=== PATIENT | female | born 1955 | race Two or more races ===

== ENCOUNTER 2016-08-23 10:13 | Emergency (ER) | payer BC ==
--- NOTE | 2016-08-23 12:03 | UC ---
UC General HPI - HPI Summary HPI Summary: The patient comes in today for: 1. Vertigo, dyspnea, coughing, hot and cold: Onset: 2 days ago. Palliative/provocative: Head movement makes the dizziness worse, exertion makes her more short of breath. Resting still makes her feel better. Quality: Vertigo, dyspnea Region: [employer], pulmonary. Severity: No pain. Time: Comes and goes. Associated symptoms: Chest pain: Retrosternal only with her cough. Cough: Yesterday she brought up yellow material. Fevers: None measured. Rhinitis: Mucous clear. Wheezing: Yesterday. Inhaler use before: None. Heart disease: DM: (-), HTN: (-), Fm Hx: (-), cholesterol: (?), Smoker: (-), * - History of Current Complaint Chief Complaint: UCGeneralIllness Stated Complaint: CONGEST,COUGH, DIZZY Time Seen by Provider: 08/23/16 11:55 Hx Obtained From: Patient - Allergy/Home Medications Allergies/Adverse Reactions: Allergies Allergy/AdvReac Type Severity Reaction Status Date / Time Propoxyphene [From Darvon] Allergy See Comment Verified 03/05/16 09:40 steri strips Allergy See Comment Uncoded 03/05/16 09:40 Home Medications: Home Medications Ibuprofen TAB* [Advil TAB*] 1 tab 08/23/16 [History] [id number] [Nyquil Severe Cold/Flu 5-6.25-10-325 mg/15Ml] 08/23/16 [History] PMH/Surg Hx/FS Hx/Imm Hx Previously Healthy: No Endocrine History Of: Reports: Thyroid Disease - enlarged Denies: Diabetes, Hyperthyroidism, Hypothyroidism, Dyslipidemia Cardiovascular History Of: Denies: Cardiac Disorders, Hypertension, Pacemaker/ICD, Myocardial Infarction , Congestive Heart Failure, Atrial Fibrillation, Deep Vein Thrombosis, Bleeding Disorders Respiratory History Of: Denies: COPD, Asthma, Bronchitis, Pneumonia, Pulmonary Embolism GI/ History Of: Denies: Gastroesophageal Reflux, Ulcer, Gastrointestinal Bleed, Gall Bladder Disease, Kidney Stones, Diverticulitis, Renal Disease, Urosepsis Neurological History Of: Denies: TIA, CVA, Dementia, Seizures, Migraine Psychological History Of: Denies: Anxiety, Depression, Bipolar Disorder, Schizophrenia, Post Traumatic Stress Disorder Cancer History Of: Denies: Lung Cancer, Colorectal Cancer, Breast Cancer, Prostate Cancer, Cervical Cancer Other History Of: Negative For: Hepatitis B, Hepatitis C, Anticoagulant Therapy - Surgical History Surgical History: Yes Surgery Procedure, Year, and Place: 2 c-sections, tubal, choley,lt ankle orif, catoract X2. lap band - Family History Known Family History: Positive: Cardiac Disease, Hypertension, Diabetes Family History: No known cardio vascular issue reported in patients lineage - Social History Occupation: Employed Full-time Alcohol Use: Rare Substance Use Type: None Smoking Status (MU): Never Smoked Tobacco - Immunization History Most Recent Influenza Vaccination: 06/2016 Review of Systems Constitutional: Negative Skin: Negative Eyes: Negative ENT: Negative Respiratory: Shortness Of Breath, Cough Cardiovascular: Chest Pain Gastrointestinal: Negative Genitourinary: Negative All Other Systems Reviewed And Are Negative: Yes Physical Exam Triage Information Reviewed: Yes Appearance: Well-Appearing, No Pain Distress, Well-Nourished Vital Signs: Initial Vital Signs Temp 98.1 F 08/23/16 10:42 Pulse 61 08/23/16 10:42 Resp 18 08/23/16 10:42 BP 142/93 08/23/16 10:42 Pulse Ox 96 08/23/16 10:42 Vital Signs Reviewed: Yes Eyes: Positive: Conjunctiva Clear. Negative: Discharge ENT: Positive: Hearing grossly normal. Negative: Pharyngeal erythema, Nasal congestion, TM bulging, TM dull, TM red, Tonsillar swelling, Tonsillar exudate Dental: Negative: Gross Decay/Caries @, Dental Fracture @ Neck: Positive: Supple, Nontender, No Lymphadenopathy Respiratory: Positive: Chest non-tender, No respiratory distress, No accessory muscle use, Rhonchi, Wheezing Cardiovascular: Positive: RRR, No Murmur Abdomen Description: Positive: Nontender, No Organomegaly, Soft. Negative: Distended, Guarding Musculoskeletal: Positive: Strength Intact, ROM Intact Neurological: Positive: Alert, Muscle Tone Normal Psychological: Positive: Age Appropriate Behavior, Consolable Skin: Negative: rashes, breakdown Diagnostics - Laboratory Diagnostic Studies Completed/Ordered: EKG: Rate: 61. Rhythm: Sinus with atrial premature complexes. Ectopy: Atrial premature Complexes. Acute changes : None. CXR: negative. Re-Evaluation - Re-Evaluation First Eval Change: Improved - The patient states that she feels better with the Duoneb and is able to breath easier. Lungs are sounding more clear. Course/Dx - Differential Dx - Multi-Symptom Provider Diagnoses: Upper respiratory infection with bronchospoasm. Discharge - Discharge Plan Condition: Stable Disposition: HOME Patient Education Materials: Upper Respiratory Infection (ED), Bronchospasm (ED ), Vertigo (ED) Referrals: Arya Luevano MD [Primary Care Provider] - 1 Week (Please see your primary care provider in a week to see how well you are doing. If you get worse, please be seen sooner in the ER or through us.)
[2016-08-23] MEDS ORDERED: Albuterol/Ipratropium NEB.SOL* Albuterol 2.5 MG/Ipratropium 0.5 MG 3 ML INH ONE (12:14)
--- NOTE | 2016-08-23 12:52 | RAD ---
INDICATION: Cough. Dyspnea COMPARISON: None TECHNIQUE: PA and lateral dual-energy views were obtained. FINDINGS: Bones/Soft Tissues: There are no acute bony findings. There is osteopenia with kyphosis Cardiomediastinal: The cardiomediastinal silhouette is normal. Lungs: There are no infiltrates. Pleura: There are no pleural effusions. Other: None IMPRESSION: NO ACTIVE DISEASE.
[2016-08-23 13:11] VITALS: BP 152/91
== END 2016-08-23 13:35 | disposition home or self-care (01) ==
LOC: UCEAST 10:13
DX: J06.9 Acute upper respiratory infection, unspecified (principal); J98.01 Acute bronchospasm
CPT/HCPCS: 71020; 93005; 99212; A9270-GY; G0463

== ENCOUNTER 2017-06-25 10:46 | Emergency (ER) | payer BC ==
[2017-06-25 12:04] VITALS: BP 138/94
--- NOTE | 2017-06-25 12:49 | UC ---
Ear Complaint HPI - HPI Summary HPI Summary: Pt presents with left ear pain, sore throat, and mild sinus congestion that started 2 days ago. She is here because her boss told her to get "checked out" because there are important events upcoming and they dont want her to be sick. She has been taking OTC cold and flu medication with mild relief, but her symptoms always return. Denies fever, chills, SOB, chest pain, abdominal pain, n /v/d/c. - History of Current Complaint Chief Complaint: UCGeneralIllness Stated Complaint: EAR PAIN RESP ISSUE Time Seen by Provider: 06/25/17 12:47 Hx Obtained From: Patient Severity Initially: Moderate Severity Currently: Moderate Pain Intensity: 5 Pain Scale Used: 0-10 Numeric - Allergies/Home Medications Allergies/Adverse Reactions: Allergies Allergy/AdvReac Type Severity Reaction Status Date / Time propoxyphene [From Darvon] Allergy jittery Verified 06/25/17 12:04 steri strips Allergy Mild See Comment Uncoded 06/25/17 12:05 Home Medications: Home Medications D-Methorphan/PE/Acetaminophen [Daytime Cold Multi-Symp Gelcap] 1 tab PO BID PRN 06/25/17 [History Confirmed 06/25/17] Magnesium Oxide [Magnesium] 1 tab PO DAILY 06/25/17 [History Confirmed 06/25/17] Multivitamin [Multiple Vitamins] 1 tab PO DAILY 06/25/17 [History Confirmed 11/04] PMH/Surg Hx/FS Hx/Imm Hx Previously Healthy: Yes Other History Of: Negative For: Hepatitis B, Hepatitis C, Anticoagulant Therapy - Surgical History Surgical History: Yes Surgery Procedure, Year, and Place: 2 c-sections, tubal, choley,lt ankle orif, catoract X2. lap band - Family History Known Family History: Positive: None, Cardiac Disease, Hypertension, Diabetes Family History: No known cardio vascular issue reported in patients lineage - Social History Occupation: Employed Full-time Lives: With Family Alcohol Use: Rare Substance Use Type: None Smoking Status (MU): Never Smoked Tobacco - Immunization History Most Recent Influenza Vaccination: 06/2016 Most Recent Tetanus Shot: within 10 years Review of Systems Constitutional: Negative Skin: Negative Eyes: Negative ENT: Sore Throat, Ear Ache, Nasal Discharge, Sinus Congestion, Sinus Pain/ Tenderness Respiratory: Negative Cardiovascular: Negative Gastrointestinal: Negative Musculoskeletal: Negative Neurological: Negative Psychological: Negative All Other Systems Reviewed And Are Negative: Yes Physical Exam Triage Information Reviewed: Yes Appearance: Well-Appearing, No Pain Distress, Well-Nourished Vital Signs: Initial Vital Signs Temp 97.8 F 06/25/17 12:00 Pulse 54 06/25/17 12:00 Resp 20 06/25/17 12:00 BP 138/94 06/25/17 12:00 Pulse Ox 100 06/25/17 12:00 Vital Signs Reviewed: Yes Eyes: Positive: Conjunctiva Clear. Negative: Conjunctiva Inflamed, Discharge ENT: Positive: Hearing grossly normal, Pharynx normal, TMs normal, Uvula midline. Negative: Pharyngeal erythema, Nasal congestion, Nasal drainage, TM bulging, TM dull, TM red, Tonsillar swelling, Tonsillar exudate, Hoarse voice, Sinus tenderness Neck: Positive: Supple, Nontender, No Lymphadenopathy Respiratory: Positive: Chest non-tender, Lungs clear, Normal breath sounds, No respiratory distress, No accessory muscle use Cardiovascular: Positive: RRR, No Murmur, Pulses Normal Neurological: Positive: Alert Psychological: Positive: Age Appropriate Behavior Skin: Negative: rashes Ear Complaint Course/Dx - Course Course Of Treatment: Suspect viral illness - advised rest and fluids. Continue with OTC medications and tylenol as needed. - Differential Dx/Diagnosis Provider Diagnoses: Viral sinusitis. Viral pharyngitis Discharge - Discharge Plan Condition: Stable Disposition: HOME Patient Education Materials: Viral Syndrome (ED) Referrals: Arya Luevano MD [Primary Care Provider] - Additional Instructions: If you develop a fever, shortness of breath, chest pain, new or worsening symptoms - please call your PCP or go to the ED. Your blood pressure was high at todays visit. Please see your primary provider within 4 weeks for recheck and re-evaluation.
== END 2017-06-25 13:20 | disposition home or self-care (01) ==
LOC: UCEAST 10:46
DX: J32.8 Other chronic sinusitis (principal); J02.9 Acute pharyngitis, unspecified; Z90.49 Acquired absence of other specified parts of digestive tract; Z98.84 Bariatric surgery status; Z88.5 Allergy status to narcotic agent; Z91.048 Other nonmedicinal substance allergy status
CPT/HCPCS: 99211; G0463

== ENCOUNTER 2018-05-29 09:50 | Observation (INO) | payer BC, MEDICARE ==
--- NOTE | 2018-05-29 10:30 | ED ---
Neurological HPI - HPI Summary HPI Summary: Time seen by provider: 10:27. The patient is a 62 y/o F presenting to [facility] with a chief complaint of sudden onset stroke-like symptoms this morning at 0900. She was walking on her way to work as normal when she began to feel a spasming, jerking feeling her left hand. She then noticed she dropped her lunch bag 5 times, which she was carrying in her left hand because she is left-hand dominant. When she arrived to work, a co-worker noticed she was slurring her speech, which lasted for about a minute. She additionally c/o a slight headache behind her right eye, although she is not usually prone to headaches or migraines. She denies change in gait, SOB, CP, or any associated pain. While her symptoms have since resolved , she notes that she has never had this before. She does not take daily medication except for Benadryl when she has difficulty sleeping. She has hx of thyroid disease but denies seizure and cardiac hx. FHx of cardiac disease. Rare EtOH and nonsmoker or substance user. - History of Current Complaint Chief Complaint: EDNeurologicalDeficit Stated Complaint: SLURRED SPEECH Time Seen by Provider: 05/29/18 10:18 Hx Obtained From: Patient Onset/Duration: Sudden Onset, Started hours ago, Resolved Timing: Sudden Onset Onset Severity: Moderate Current Severity: None Neurological Deficit Location: LUE Headache Location: Temporal (Right) - behind right eye Pain Intensity: 0 Pain Scale Used: 0-10 Numeric Character: Motor Weakness - spasming of left hand and continuous dropping of lunch bag, Impaired Speech - slurred Aggravating: Nothing Alleviating: Nothing Associated Signs and Symptoms: Positive: Impaired Speech. Negative: Unsteady Gait, Seizure, Pain, Chest Pain, Shortness of Breath - Allergy/Home Medications Allergies/Adverse Reactions: Allergies Allergy/AdvReac Type Severity Reaction Status Date / Time propoxyphene [From Darvon] Allergy jittery Verified 05/29/18 10:11 steri strips Allergy Mild See Comment Uncoded 05/29/18 10:11 Home Medications: Home Medications diphenhydrAMINE HCl [Benadryl LIQUID 12.5 MG/5 ML] 12.5 mg PO DAILY 05/29/18 [ History Confirmed 05/29/18] PMH/Surg Hx/FS Hx/Imm Hx Endocrine/Hematology History: Reports: Hx Thyroid Disease - enlarged Denies: Hx Anticoagulant Therapy, Hx Diabetes Cardiovascular History: Denies: Hx Congestive Heart Failure, Hx Deep Vein Thrombosis, Hx Hypertension , Hx Myocardial Infarction, Hx Pacemaker/ICD Respiratory History: Denies: Hx Asthma, Hx Chronic Obstructive Pulmonary Disease (COPD), Hx Lung Cancer, Hx Pneumonia, Hx Pulmonary Embolism GI History: Denies: Hx Gall Bladder Disease, Hx Gastrointestinal Bleed, Hx Ulcer, Hx Urosepsis History: Denies: Hx Kidney Stones, Hx Renal Disease Neurological History: Denies: Hx Dementia, Hx Migraine, Hx Seizures, Hx Transient Ischemic Attacks (TIA) Psychiatric History: Denies: Hx Anxiety, Hx Depression, Hx Schizophrenia, Hx Bipolar Disorder - Surgical History Surgery Procedure, Year, and Place: 2 c-sections, tubal, choley,lt ankle orif, catoract X2. lap band Infectious Disease History: No Infectious Disease History: Denies: Hx Hepatitis, Hx Human Immunodeficiency Virus (HIV), Traveled Outside the [place] in Last 30 Days - Family History Known Family History: Positive: Cardiac Disease, Hypertension, Diabetes Family History: No known cardio vascular issue reported in patients lineage - Social History Alcohol Use: Rare Hx Substance Use: No Substance Use Type: Reports: None Hx Tobacco Use: No Smoking Status (MU): Never Smoked Tobacco Review of Systems Negative: Fever, Chills Negative: Erythema Negative: Sore Throat Negative: Chest Pain Negative: Shortness Of Breath, Cough Negative: Abdominal Pain, Vomiting, Nausea Negative: dysuria, hematuria Negative: Myalgia, Edema Negative: Rash Neurological: Other - POSITIVE: sensation of muscle spasming in left hand; NEGATIVE: dizziness, change in gait Positive: Headache - pain behind right eye, Slurred Speech - lasting for a minute All Other Systems Reviewed And Are Negative: Yes Physical Exam - Summary Physical Exam Summary: Constitutional: Well-developed, Well-nourished, Alert. (-) Distressed Skin: Warm, Dry HENT: Normocephalic; Atraumatic Eyes: Conjunctiva normal Neck: Musculoskeletal ROM normal neck. (-) JVD, (-) Stridor, (-) Tracheal deviation Cardio: Rhythm regular, rate normal, Heart sounds normal; Intact distal pulses; The pedal pulses are 2+ and symmetric. Radial pulses are 2+ and symmetric. (-) Murmur Pulmonary/Chest wall: Effort normal. (-) Respiratory distress, (-) Wheezes, (-) Rales Abd: Soft, (-) epigastric tenderness, (-) Distension, (-) Guarding, (-) Rebound Musculoskeletal: (-) Edema Lymph: (-) Cervical adenopathy Neuro: Alert, Oriented x3, GCS: 15, NIH: 0 Psych: Mood and affect Normal Triage Information Reviewed: Yes Vital Signs On Initial Exam: Initial Vitals Temp Pulse Resp BP Pulse Ox 97.2 F 64 17 195/109 98 05/29/18 09:51 05/29/18 09:51 05/29/18 09:51 05/29/18 09:51 05/29/18 09:51 Vital Signs Reviewed: Yes - Giana Coma Scale Best Eye Response: 4 - Spontaneous Best Motor Response: 6 - Obeys Commands Best Verbal Response: 5 - Oriented Coma Scale Total: 15 Diagnostics - Vital Signs Vital Signs Temp Pulse Resp BP Pulse Ox 05/29/18 09:51 97.2 F 64 17 195/109 98 - Laboratory Result Diagrams: 05/29/18 10:37 05/29/18 10:37 Lab Statement: Any lab studies that have been ordered have been reviewed, and results considered in the medical decision making process. - CT Brain CT CT Interpretation Completed By: Radiologist Summary of CT Findings: Negative unenhanced head CT. ED physician has reviewed this report. - EKG 1042 Cardiac Rate: Bradycardia - 55 BPM EKG Rhythm: Sinus Bradycardia EKG Comparison: No Significant Change - Similar to 08/23/16. Summary of EKG Findings: No STEMI. NIH Scale - NIH Scale Level of Consciousness: Alert/Keenly Responsive Ask Patient the Month and His/Her Age: Both Correct Ask Pt to Open/Close Eyes and Windows Desktop Support/Release Non-Paretic Hand: Both Correctly Best Gaze (Only Horizontal Eye Movement): Normal Visual Field Testing: No Visual Loss Facial Paresis-Pt to Smile & Close Eyes or Grimace Symmetry: Normal/Symmetrical Motor Function - Right Arm: No Drift-Holds 10 Seconds Motor Function - Left Arm: No Drift-Holds 10 Seconds Motor Function - Right Leg: No Drift-Holds 10 Seconds Motor Function - Left Leg: No Drift-Holds 10 Seconds Limb Ataxia-Must be out of Proportion to Weakness Present: Absent Sensory (Use Pinprick to Test Arms/Legs/Trunk/Face): Normal Best Language (Describe Picture, Name Items): No Aphasia Dysarthria (Read Several Words): Normal Extinction and Inattention: No Abnormality Total Score: 0 Re-Evaluation - Re-Evaluation First Eval Re-Evaluation Time: 11:00 Change: Unchanged Comment: I spoke with the patient concerning admission. Course/Dx - Course Course Of Treatment: Time seen by provider: 10:27. The patient is a 62 y/o F presenting to [facility] with a chief complaint of sudden onset stroke-like symptoms including spasming of the left hand, continuous dropping of her lunch bag, and slurring of speech this morning at 0900. She additionally c/o a slight headache behind her right eye, and denies change in gait. Never experienced this before. No seizure or cardiac hx. FHx of cardiac disease. Upon physical exam, the patient exhibits no acute abnormalities. Bloodwork obtained without significant abnormalities. EKG reveals sinus bradycardia. Brain CT is negative. I consulted with Dr. Kaur at 1100, and he will see the patient in the ED. I also spoke with Dr. Al, who accepts the patient for admission at 1135. The patient is diagnosed with TIA. She agrees with and understands the need for admission at this time. - Diagnoses Provider Diagnoses: TIA (transient ischemic attack) - Physician Notifications Discussed Care Of Patient With: Slim Kaur - neurology Time Discussed With Above Provider: 11:00 Instructed by Provider To: Other - I consulted with Dr. Kaur, who will see the patient in the ED. I also spoke with Dr. Al, who accepts the patient for admission at 1135. Discharge - Sign-Out/Discharge Documenting (check all that apply): Patient Departure - Patient will be admitted to [facility] [place] for further care by Dr. Al. - Discharge Plan Condition: Stable Disposition: ADMITTED TO [facility] - Billing Disposition and Condition Condition: STABLE Disposition: Admitted to [facility] - Attestation Statements Document Initiated by Scribe: Yes Documenting Scribe: Kerrie Falcon Provider For Whom Scribe is Documenting (Include Credential): Dr. Bubab Joseph MD Scribe Attestation: Kerrie Moran, scribed for Dr. Bubba Joseph MD on 05/29/18 at 2053. Scribe Documentation Reviewed: Yes Provider Attestation: The documentation as recorded by the scribe, Kerrie Falcon accurately reflects the service I personally performed and the decisions made by me, Dr. Bubba Joseph MD Status of Cinthya Document: Viewed
[2018-05-29 10:44] LABS: Hematocrit 44 % (35-47); Hemoglobin 14.4 g/dl (12.0-16.0); Mean Corpuscular HGB Conc 33 g/dl (31-36); Mean Corpuscular Hemoglobin 29 pg (27-31); Mean Corpuscular Volume 89 fL (80-97); Mean Platelet Volume 8.3 fL (7.4-10.4); Platelet Count 250 10^3/ul (150-450); Red Blood Count 4.92 10^6/ul (4.00-5.40); Red Cell Distribution Width 14 % (10.5-15); White Blood Count 6.9 10^3/ul (3.5-10.8)
[2018-05-29 10:54] LABS: Activated Partial Thrombo Time 29.3 seconds (26.0-36.3); INR 0.91 (0.77-1.02)
[2018-05-29 11:07] LABS: Albumin 3.7 g/dL (3.2-5.2); Albumin/Globulin Ratio 1.1 (1-3); BUN/Creatinine Ratio 29.3 (8-20); Calcium 9.7 mg/dL (8.6-10.3); EGFR Non-African American 77.8 (>60); Globulin 3.4 g/dL (2-4); Potassium 4.2 mmol/L (3.5-5.0); Total Bilirubin 0.5 mg/dL (0.2-1.0); Total Protein 7.1 g/dL (6.4-8.9)
[2018-05-29] MEDS ORDERED: Acetaminophen TAB* 325 MG PO PRN (13:58)
[2018-05-29] MEDS ORDERED: Enoxaparin(*) 40 MG/0.4 ML SYR SUBCUT SCH (14:00)
[2018-05-29] MEDS ORDERED: Melatonin 3 MG TAB PO PRN (14:04)
[2018-05-29] MEDS ORDERED: Aspirin 81 mg CHEW TAB* 81 MG TAB.CHEW PO ONE (14:23)
[2018-05-29 15:15] LABS: TSH (Thyroid Stimulating Horm) 0.52 mcIU/mL (0.34-5.60)
--- NOTE | 2018-05-29 15:37 | HP ---
CC: Dr. Luevano * HISTORY AND PHYSICAL: DATE OF ADMISSION: 05/29/18 PROVIDER: Shima Griffin NP. ATTENDING PHYSICIAN WHILE IN THE HOSPITAL: Dr. Ghulam Al * (dictated by Shima Griffin NP). CHIEF COMPLAINT: 1. Slurred speech. 2. Left hand weakness. HISTORY OF PRESENT ILLNESS: Ms. Pelletier is a 62-year-old female with a past medical history significant for thyroid goiter, who presented to the emergency room with the complaint of slurred speech and dropping things from her left hand. The patient reports that she picked up her lunch bag and was walking to work and kept dropping the lunch bag out of her left hand. She does report she was able to meat pickler the lunch bag each time with her left hand, but then would walk a few steps and the bag would drop out of her hand. She reports that she felt like her left third and fourth fingers were twitching. The patient reports that she proceeded and walked to work. When she got to work, she went to talk to a co-worker and her speech was slurred. The co-worker asked her if she was okay and due to her slurred speech and dropping things with her left hand, she was brought to the emergency room by another co-worker. She said this episode lasted approximately 15 minutes. She said that it started at approximately 8:55 and was resolved by approximately 9:10. The patient denies any residual deficits. She denied any dizziness, loss of consciousness, change in vision. She does report that behind her right eye, she did have some aching. While in the emergency room, the patient had routine lab work drawn, which was within normal limits. She had a CT of the brain, which was negative and did not show any intracranial hemorrhage. Due to her symptoms, we were asked to see and evaluate her to rule out TIA. PAST MEDICAL HISTORY: Goiter. PAST SURGICAL HISTORY: 1. Lap-Band. 2. . 3. Tubal ligation. 4. Cholecystectomy. 5. ORIF of the left ankle. 6. D and C. 7. Cataract surgery. HOME MEDICATIONS: Benadryl at bedtime. ALLERGIES: She is allergic to DARVON. FAMILY HISTORY: Mother with a history of OK in her 70s. Father with congestive heart failure, at age 61. Father with a history of diabetes, brother with history of unknown cancer, aunt with breast cancer. SOCIAL HISTORY: Denies any tobacco. Does report rare alcohol use. Denies any illicit drug use. 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 She is . Surrogate decision maker in the event she is unable to make her own decisions is her who she lives with. She is a full code. REVIEW OF SYSTEMS: She denies any fever, any loss of appetite, chest pain, edema. She does report a chronic cough, which she associates with acid reflux. She denies any hemoptysis or shortness of breath. No nausea, vomiting, diarrhea , abdominal pain, gross hematuria, or dysuria. She does report weakness to her left hand that lasted approximately 15 minutes where she kept dropping objects. She did complain of some aching behind the right eye, which has resolved. Denies any dysphagia. Denies any arthralgias, myalgias, rashes, lesions. No psychosis or anxiety. PHYSICAL EXAMINATION GENERAL: Ms. Pelletier is a 62-year-old female. She appears well, sitting on a stretcher in the emergency room. She does not appear to be in any acute distress. She is alert and oriented x3. HEENT: Head is atraumatic, normocephalic. Eyes: EOMs are intact. Sclerae anicteric and not pale. Oral mucosa appeared to be moist. NECK: Supple. She does have thyroid enlargement on the left. LUNGS: Clear to auscultation bilaterally. No wheezes, rales, or rhonchi. CARDIAC: S1, S2. Regular rate and rhythm. She is bradycardic on the monitor. No murmurs, rubs, or gallops. ABDOMEN: Soft and nontender. Bowel sounds are present x4. EXTREMITIES: Pedal pulses are +2 bilaterally. She is able to move all 4 extremities with 5/5 strength. NEUROLOGIC: She is awake, alert, oriented x3. Speech is clear. Smile is intact. Tongue is midline. Cranial nerves II through XII are intact. She has no pronator drift, no leg weakness is noted. Hand waste machine offbearer are equal. Speech is clear and articulate. Fafw-kt-rspb is intact. Dqgcyj-sq-fatt is intact. SKIN: Intact. DIAGNOSTIC STUDIES/LAB DATA: WBCs are 6.9, RBCs 4.92, hemoglobin 14.4, hematocrit 44, platelet count 250. INR was 0.91, aPTT was 29.3. Sodium 137, potassium 4.2, chloride 102, carbon dioxide was 29, anion gap was 6, BUN was 22 , creatinine 0.75, glucose was 99, calcium 9.7. AST was 17, ALT was 13, alkaline phosphatase 65. CT of the brain: Negative unenhanced CT of the brain. She had an electrocardiogram, which showed sinus bradycardia. ASSESSMENT AND PLAN: Ms. Pelletier is a 62-year-old female with no significant past medical history other than a goiter, who presented to the emergency room with a complaint of slurred speech and left hand weakness lasting approximately 15 minutes this a.m. At this time, she will be admitted to rule out TIA. 1. Slurred speech: I suspect this could be related to a TIA. The patient did have symptoms of left hand weakness and dropping her lunch bag several times out of her left hand, lasting approximately 15 minutes and then with total resolution of her symptoms. Given this, the patient will be admitted. She will be monitored on telemetry. We will get neuro checks overnight. She will have an MRI of the brain. She will have transthoracic echocardiogram with bubble study and bilateral carotid Dopplers. She will be monitored on telemetry overnight. She will have a swallow evaluation and she can be placed on heart-healthy, caffeine-okay diet. We will also get a lipid profile in the a.m. and I will place her on aspirin 81 mg p.o. daily. After passing her dysphagia screen, she can be started on a heart-healthy diet. 2. DVT prophylaxis: We will place her on Lovenox subcu daily. 3. Code status: She is a full code. TIME SPENT: Time spent on this admission was 60 minutes, greater than half of that time was spent [id number] with the patient obtaining my history and physical and the other half of the time reviewing my plan of care and implementing my plan of care. SHIMA GRIFFIN, AURE [id number]/CPS #: [id number] MTDD
--- NOTE | 2018-05-29 16:15 | CONS ---
CONSULTATION REPORT: ADDENDUM: ASSESSMENT AND PLAN: Ms. Hawa Pelletier is a 62-year-old fairly healthy female who presents with a transient episode of slurred speech and left hand weakness. There is a concern for transient ischemic attack in the right middle coronary artery vascular territory. Her ABCD score is 1 for slurred speech. Therefore, her risk of an actual stroke within the next 24 hours or even the 90 days is low. However, we will admit to the hospitalist service for further workup. Please obtain an MRI of the brain without contrast to evaluate for any intracranial mass lesions or an acute asymptomatic ischemic infarction. MRA of the head to evaluate for intracranial stenosis and a carotid ultrasound to evaluate for carotid disease. Please obtain a 2D transthoracic echo with bubble study to evaluate for patent foramen ovale or any cardioembolic phenomenon. If positive, we will need to scan her lower extremities with a venous Doppler. Start aspirin 81 mg daily. Hold off on statin therapy until her lipid panel comes back. Please order TSH given her enlarged thyroid gland which she is aware of and she had informed me that extensive workup has been done in the past for this and it is benign. Please obtain a vitamin B12 level. Neuro checks every 4 hours. No need for PT/OT/JAVA DEVELOPMENT MANAGER since the patient is asymptomatic. Keep her blood pressure within normal range. Bedside swallow evaluation. Do not place a urinary catheter unless there is evidence of urinary retention. DVT prophylaxis with enoxaparin. There is no indication for anticoagulation therapy. The patient is not a candidate for IV tPA or mechanical thrombectomy. TIME SPENT: A total of 70 minutes and greater than 50% was spent directly reviewing the medical chart, obtaining history, examining the patient, education and counseling, and discussing the treatment plan as mentioned above. [id number]/[facility] #: [id number] [facility] CENTERMyrna
--- NOTE | 2018-05-29 16:24 | CONS ---
CONTINUATION ADDENDUM NOW INCLUDED IN THIS REPORT CONSULTATION REPORT: DATE OF CONSULT: 05/29/18 CONSULTING PROVIDER: Dr. Joseph. REASON FOR CONSULT: Concern for TIA. CHIEF COMPLAINT: Sudden-onset slurred speech and left hand weakness that has resolved. HISTORY OF PRESENT ILLNESS: Mrs. Hawa Pelletier is a 62-year-old female with a past medical history of enlarged thyroid gland, who presented to [facility] for an evaluation of possible TIA. The patient woke up in normal state of health. At approximately 9 a.m., she got out of her car and started walking to her office. 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 At 9:05, she developed symptoms of left hand weakness. She dropped her bag 5 times from where she parked her car and where her office is located. At 9:15, one of the attorneys asked her a question and she responded with significant slurring of speech. There was some associated headache and dizziness that is benign. She felt slight vertigo yesterday. The slurred speech apparently went away after a few minutes. She came to the ER completely asymptomatic. She is aspirin naive. She had a CT head without contrast that showed no acute intracranial abnormality. NIH Stroke Scale of 0 at this time. The patient has never had any similar symptoms in the past. PAST MEDICAL AND SURGICAL HISTORY: Two C-sections, tubal ligation, gallbladder surgery, bilateral cataract surgery, left ankle ORIF. MEDICATIONS: 1. Multivitamin. 2. Diphenhydramine/Benadryl 12.5 mg p.o. daily. ALLERGIES: PROPOXYPHENE, STERI-STRIPS. FAMILY HISTORY: She has family history of diabetes and coronary artery disease. No family history of stroke or seizures. 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 She denied tobacco use. She does drink alcohol, but rarely. PHYSICAL EXAM: Vitals: Temperature 97.2, pulse rate of 57, respiratory rate of 24, oxygen saturation of 95% on room air, blood pressure 139/78. General: Well- nourished, well-developed female, in no acute distress. Alert, cooperative. Head: Normocephalic, atraumatic. Eyes: Conjunctivae/corneas are clear. Neck is supple and symmetrical, but there is thyroid gland enlargement, left greater than right. No carotid bruit. Clear to auscultation bilaterally, non-labored breathing. Regular rate and rhythm, with normal S1, S2. Normal range of motion, with no cyanosis. No skin lesions or lacerations. Psychiatric : Affect is broad and normal mood. Neurological Examination: Mental Status: Awake, alert, and oriented to person, place, time, and general circumstance. Speech and language including expression, naming, repetition, and comprehension were assessed and found to be normal. Cranial Nerves: Normal confrontation testing bilaterally. Pupils are mid range and reactive to light. Normal consensual response. Sensation is intact in the forehead, cheeks, and jaw region bilaterally. No facial droop. She is able to hear throughout the history process. Symmetrical palatal elevation. Normal strength against resistance. Tongue is symmetrical and midline, without any atrophy or fasciculation. Motor Examination: No abnormal movements or pronator drift. Normal bulk and tone throughout. No fasciculation. 5/5 strength in the upper and lower extremities bilaterally. Reflexes right/left, brachioradialis 2/2, biceps 2/2, triceps 2/2, patella 2/2, ankle trace/trace. Sensation is intact to light touch throughout. Vibrator sensation is 14 seconds on the right and 6 seconds on the left great toe. Normal proprioception bilaterally. Coordination : Normal uppotx-cj-heup and rapid alternating movement. Gait and station normal and no ataxia. DIAGNOSTIC STUDIES/LAB DATA: WBC 6.9, hemoglobin 14.4, hematocrit 44, platelets function 250. Sodium 137, potassium 4.2, chloride 102, BUN 22, creatinine 0.75. CONTINUATION ADDENDUM: ASSESSMENT AND PLAN: Ms. Hawa Pelletier is a 62-year-old, fairly-healthy female who presents with a transient episode of slurred speech and left hand weakness. There is a low suspicion for transient ischemic attack in the right middle coronary artery vascular territory. Her ABCD score is 1 for slurred speech. Therefore, her risk of an actual stroke within the next 24 hours or even the 90 days is low. However, we will admit to the hospitalist service for further workup. Other differential diagnosis include seizures (less likely) or complicated migraine headaches. Recommendations: Please obtain an MRI of the brain without contrast to evaluate for any intracranial mass lesions or an acute asymptomatic ischemic infarction. MRA of the head to evaluate for intracranial stenosis and a carotid ultrasound to evaluate for carotid disease. Please obtain a 2D transthoracic echo with bubble study to evaluate for patent foramen ovale or any cardioembolic phenomenon. If positive, we will need to scan her lower extremities with a venous Doppler. Start aspirin 81 mg daily. Hold off on statin therapy until her lipid panel comes back. Please order TSH given her enlarged thyroid gland which she is aware of and she had informed me that extensive workup has been done in the past for this and it is benign. Please obtain a vitamin B12 level. Neuro checks every 4 hours. No need for PT/OT/LIFE SKILLS COORDINATOR VOLUNTEER since the patient is asymptomatic. Keep her blood pressure within normal range. Bedside swallow evaluation. Do not place a urinary catheter unless there is evidence of urinary retention. DVT prophylaxis with enoxaparin. There is no indication for anticoagulation therapy. The patient is not a candidate for IV tPA or mechanical thrombectomy. TIME SPENT: A total of 70 minutes and greater than 50% was spent directly reviewing the medical chart, obtaining history, examining the patient, education and counseling, and discussing the treatment plan as mentioned above. [id number]/CPS #: [id number] A- [id number]/CPS #: [id number] MOUNIKA
[2018-05-30 06:59] LABS: HDL Cholesterol 53.4 mg/dL
[2018-05-30] MEDS ORDERED: Aspirin EC TAB* 81 MG TAB.EC PO SCH ×2 (09:00)
[2018-05-30] MEDS ORDERED: Prenatal Vitamin TAB PO SCH (09:00)
[2018-05-30] MEDS ORDERED: Gadoteridol* (CONTRAST) 279.3 MG/ML 10 ML IV ONE (12:08)
--- NOTE | 2018-05-30 16:24 | ECHO ---
Patient: CAROLINA FRANCO [facility] Rec#: [id number] : 1955 Date: 05/30/2018 Age: 62y Height: 165 cm / 65.0 in Weight: 91 kg / 200.6 lbs Sex: F BSA: 1.98 Room#: 432 Admit Date#: 05/29/2018 Type: Inpatient Referring: Marissa Griffin Reading: Charlie Donis DO Grass Cutter: Wanda Watson RDCS CC: Arya Luevano MD Transthoracic Echocardiogram Indication: TIA BP: 115/77 HR: 56 Rhythm: NSR with PACs Findings History: Thyroid disease. Technical Comments: The study quality is fair. Completed at 1220. Left Ventricle: The left ventricular chamber size is normal. There is no left ventricular hypertrophy. Global left ventricular wall motion and contractility are within normal limits. There is normal left ventricular systolic function. The estimated ejection fraction is 55-60%. Abnormal left ventricular diastolic function is observed. Abnormal left ventricular diastolic filling is observed, consistent with impaired relaxation. Left Atrium: The left atrium is mildly dilated. Right Ventricle: The right ventricular chamber size and systolic function are within normal limits. Right Atrium: The right atrium is moderately dilated. There were late bubbles seen in the left atrium. A patent foramen ovale is not demonstrated by color Doppler. Aortic Valve: The aortic valve is trileaflet. The aortic valve leaflets are mildly thickened. Mitral Valve: The mitral valve leaflets are mildly thickened. There is trace to mild mitral regurgitation. There is no evidence of mitral stenosis. Tricuspid Valve: The tricuspid valve leaflets are normal. There is trace to mild tricuspid regurgitation. No pulmonary hypertension is noted. There is no tricuspid stenosis. Pulmonic Valve: The pulmonic valve appears normal. There is a trace pulmonic regurgitation. There is no pulmonic stenosis. Pericardium: There is no significant pericardial effusion. Aorta: There is mild dilatation of the ascending aorta. There is no dilatation of the aortic arch. The aortic root is normal in size. Pulmonary Artery: The main pulmonary artery is not well visualized. Venous: The inferior vena cava appears normal in size. There is a greater than 50% respiratory change in the inferior vena cava dimension. Contrast: Intravenous agitated saline contrast was used to assess intracardiac shunting. Images 88 and 89. Conclusions The left ventricular chamber size is normal. There is no left ventricular hypertrophy. Global left ventricular wall motion and contractility are within normal limits. There is normal left ventricular systolic function. The estimated ejection fraction is 55-60%. The left atrium is mildly dilated. The right ventricular chamber size and systolic function are within normal limits. No significant valvular abnormalities noted There were several late bubbles seen in the left atrium, this may be due to a PFO There is mild dilatation of the ascending aorta. None prior available for comparison at time of interpretation Measurements Name Value Normal Range RVIDd (AP) 2D 3.9 cm (0.9 - 2.6) RVDdMajor (2D) 4.6 cm (2.2 - 4.4) RAd ISD 4CH 5.6 cm (3.4 - 4.9) RA (A4C)W 4.8 cm (2.9 - 4.6) IVSd (2D) 1 cm (0.6 - 1) LVPWd (2D) 0.8 cm (0.6 - 1) LVIDd (2D) 4.5 cm (3.6 - 5.4) LVIDs (2D) 2.9 cm - LV FS (2D) 35 % (25 - 45) Aortic Annulus 2 cm (1.4 - 2.6) Ao root diameter (2D) 3 cm (2.1 - 3.5) Ascending Ao 3.9 cm (2.1 - 3.4) Aortic arch 2.4 cm (1.8 - 3.4) LA dimension (AP) 2D 4.3 cm (2.3 - 3.8) LAd ISD 4CH 5.2 cm (2.9 - 5.3) LA ISD 4CH W 4.7 cm (2.5 - 4.5) Name Value Normal Range LA ESV BP (A/L) index 34 ml/m2 - Name Value Normal Range MV E-wave Vmax 0.7 m/sec - MV deceleration time 236 msec - MV A-wave Vmax 0.8 m/sec - MV E:A ratio 0.8 ratio - LV septal e' Vmax 0.06 m/sec - LV lateral e' Vmax 0.07 m/sec - LV E:e' septal ratio 11.7 ratio - LV E:e' lateral ratio 10 ratio - Name Value Normal Range AV Vmax 1.2 m/sec - AV VTI 26 cm - AV peak gradient 6 mmHg - AV mean gradient 3 mmHg - LVOT Vmax 1 m/sec - LVOT VTI 20 cm - LVOT peak gradient 4 mmHg - LVOT mean gradient 2 mmHg - BULL Vmax 0.6 m/sec - Name Value Normal Range TR Vmax 2 m/sec - TR peak gradient 16 mmHg - RAP 3 mmHg - RVSP 19 mmHg - IVC diameter 1.5 cm - Name Value Normal Range PV Vmax 1 m/sec - PV VTI 4 cm - TX end-diastolic Vmax 0.9 m/sec - PA end-diastolic pressur4 mmHg -
--- NOTE | 2018-05-30 16:27 | PN ---
Subjective Date of Service: 05/30/18 Length of Stay: 1 Days Neurology is following of stroke. Interval History: She has no weakness. She denied any headaches. Symptoms completely resolved. She has an abnormal MRI. Review of Systems: Denied CP, SOB, or palpitations. Objective Active Medications: Acetaminophen (Tylenol Tab*) 650 mg PO Q4H PRN PRN Reason: FEVER/PAIN Last Admin: 05/30/18 13:55 Dose: 650 mg Aspirin (Aspirin Ec Tab*) 81 mg PO DAILY [facility] Last Admin: 05/30/18 10:24 Dose: 81 mg Atorvastatin Calcium (Lipitor*) 40 mg PO 1700 [facility] Melatonin (Melatonin) 3 mg PO BEDTIME PRN; Protocol PRN Reason: SLEEP Last Admin: 05/29/18 23:30 Dose: 3 mg Multivitamins ( Vitamin Tab*) 1 tab PO DAILY [facility] Last Admin: 05/30/18 10:24 Dose: 1 tab Vital Signs 05/29/18 05/29/18 05/30/18 19:14 23:34 03:26 Temperature 98.2 F 97.7 F 97.7 F Pulse Rate 64 66 59 Respiratory 16 14 16 Rate Blood Pressure 122/67 143/91 115/77 (mmHg) O2 Sat by Pulse 96 99 98 Oximetry 05/30/18 05/30/18 05/30/18 07:19 07:35 12:21 Temperature 97.4 F 97.4 F Pulse Rate 53 60 Respiratory 16 16 16 Rate Blood Pressure 121/77 121/75 (mmHg) O2 Sat by Pulse 97 99 Oximetry Intake and Output Last 24 Hours 05/28/18 05/29/18 05/30/18 05/31/18 06:59 06:59 06:59 06:59 Intake Total 200 725 Balance 200 725 Weight 206 lb 3.2 oz Intake: Oral 200 725 Other: # Bowel Movements 0 # Voids 0 Oxygen Devices in Use Now: None Neurology Exam: General: Awake, Alert, Oriented x3 HEENT: Normocephalic/atraumatic, sclera anicteric, mucous membranes moist Neck: Supple Chest: Clear to auscultation bilaterally Cardiovascular: Regular rate and rhythm without murmurs, rubs, gallops Abdomen: Soft, nontender/nondistended Extremities: No clubbing, cyanosis, or edema Neurological Findings: Awake, Alert, Oriented x3 Speech: fluent without dysrhythmia, repetition intact Cranial Nerve: PEERL, EOM intact, VFF, no nystagmus, face symmetric bilaterally , facial sensation intact, hearing intact to finger rub bilaterally, palate elevates symmetrically, tongue midline, SCM and Trapezius s/s. Motor: s/s throughout, proximal and distal extremities x4 tone/bulk normal Sensation: intact to LT/PP bilaterally upper and lower extremities Deep Tendon Reflex: 2+ symmetric in the upper/lower extremities, Babinski - down going Finger to nose, rapid alternating movements intact without tremor, no dysdiadochokinesia Gait: intact with good arm swing and stride Result Diagrams: 05/29/18 10:37 05/29/18 10:37 Diagnostic Imaging: Cholesterol: 203 LDL: 131 Images: reviewed MRI brain without contrast completed on 05/29/18: right frontal ischemic stroke localized to the cortex. MRA head without contrast completed on 05/29/18: no large vessel intracranial arterial stenosis or occlusion. MRI brain with contrast completed on 05/30/18: there is an abnormal mass like enhancement mostly around the early acute cortically based infarct in the posterior right frontal lobe more completely characterized on comparison image. Underlying developmental venous anomaly is not totally excluded around that area of infarction. Carotid ultrasound 05/29/18: no atherosclerotic plaque in the carotids on either side. TTE: pendin. Assessment/Plan Mrs. Hawa Pelletier is a 62-year-old female who presented with transient slurred speech and left hand weakness. 1. Acute right MCA cortical ischemic stroke She was not a candidate for IV tPA or thrombectomy as her symptoms immediately resolved MRI brain with contrast shows some areas of possible venous anomaly in the area of infarction. Recommendations: - Aspirin 81 mg daily - Atorvastatin 40 mg nightly - Pending 2D-TTE with bubble study. If negative, patient can be discharged home. - Stroke counseling and secondary stroke prevention was discussed with the patient and spouse at bedside. - She should discuss with a cardiology about obtaining a holter/loop recorder to evaluate for cardiac arrhythmia - We may need to repeat the MRI brain with contrast as outpatient. If the anomaly is still present, she should be followed-up by neurosurgery.
[2018-05-30] MEDS ORDERED: Atorvastatin* 40 MG TAB PO SCH (17:00)
[2018-05-30 17:20] VITALS: BP 102/64
--- NOTE | 2018-06-01 00:55 | DS ---
CC: Dr. Arya Luevano * DISCHARGE SUMMARY: DATE OF ADMISSION: 05/29/18 DATE OF DISCHARGE: 05/30/18 PRIMARY CARE PROVIDER: Dr. Arya Luevano. MY ATTENDING WHILE IN THE HOSPITAL: Dr. Ladonna Baeza.* (DICTATED BY ANDERSON GUTIÉRREZ) PRIMARY DISCHARGE DIAGNOSES: 1. Cerebrovascular accident. 2. Patent foramen ovale. SECONDARY DISCHARGE DIAGNOSES: 1. Goiter. 2. History of lap-band surgery. STUDIES DONE WHILE IN THE HOSPITAL: 1. Brain CT from 05/29/[address] unenhanced CT. 2. Electrocardiogram from 05/29/18 shows normal sinus rhythm, no ST segment elevations, left axis deviation. No hypertrophy or enlargement. Rate of 55, QTc of 395. 3. Brain MRI from 05/29/18 read as area of restricted diffusion in the right frontal lobe, which appears to localized to the cortex, may represent a small cortical infarct. There is some susceptibility of artifact noted, possibility of tiny hemorrhage in this area cannot be excluded. 4. Transthoracic echocardiogram from 05/29/18 read as left ventricular chamber size is normal, no left ventricular hypertrophy, wall motion contractility within normal limits. Normal left ventricular systolic function. Estimated ejection fraction 55% to 60%. Left atrium is mildly dilated. Right ventricular chamber size is within normal limits. No significant valvular abnormalities. There are several light bubbles seen in the left atrium, this may be due to PFO. There is mild dilatation of the ascending aorta. 5. Carotid Doppler study from 05/29/18 read as there is no sonographic evidence of hemodynamically significant stenosis in the bilateral carotid arteries. 6. Head MRA read as no intracranial arterial stenosis or occlusion is evident. 7. Brain MRI from 05/30/18 read as there is early subacute cortically based infarct in the posterior right frontal lobe, centered about a thrombosed cortical vessel. There is an underlying developmental venous anomaly that is not totally excluded. 8. Venous Doppler study from 05/30/18 read as no evidence of right or left lower extremity DVT. MEDICATIONS AT DISCHARGE: 1. Tylenol 650 mg p.o. q.6 hours as needed. 2. Aspirin 81 mg p.o. daily. 3. Lipitor 40 mg p.o. daily. 4. Vitamin B12 500 mcg p.o. daily. 5. Benadryl 12.5 mg p.o. daily. HOSPITAL COURSE: This is a brief summary of the patient's presentation. For more details, please see the history and physical from Marissa Griffin NP., on 05/29/18. In brief, the patient is a 62-year-old female with past medical history significant for the above, who presented to the emergency department with sudden onset of left-handed weakness and slurred speech with no inability to form words. Patient states the episode lasted approximately 15 minutes. She had no other deficits. She came into the hospital and was still found to have no residual deficits. Patient was seen in consultation by Dr. Slim Kaur of Neurology, who recommended evaluation for CVA versus TIA. Patient was found to have a CVA associated with a possible congenital venous abnormality as above. The patient was started on aspirin. Due to possibility of hemorrhage or venous anomaly patient was not started on Plavix, also due to the fact that she was aspirin naive. The patient's cortically based infarct was believed to be possibly due to an embolic phenomenon. So, an echocardiogram was done and showed a possible PFO as above. Lower extremity venous Doppler studies were negative as above. Patient had no laboratory abnormalities, except for an LDL cholesterol of 131 and started on Lipitor 40 mg daily. It was discussed with the patient that given her age, having possibly an embolically based stroke and a PFO, that she should evaluated for possible PFO closure on nonemergent basis, as well as needing a possible long-term event monitor to capture possible occult atrial fibrillation. Patient stated understanding and wanted to follow up with her 's trap operator, whose name they do not remember. Patient was stable and amenable for discharge on 05/30/18. PHYSICAL EXAM ON THE DAY OF DISCHARGE: General: The patient is a 62-year-old female who appears stated age and is sitting comfortably on the bed, in no acute distress. Vital Signs: At the time of discharge, temperature 97.4, pulse rate 57, respiratory rate 16, oxygen saturation 96% on room air, blood pressure 102/64. HEENT: Head normocephalic, atraumatic. Sclerae anicteric. No conjunctival injection. Nasal mucosa moist. Oral mucosa moist. No pharyngeal erythema, discharge or exudate. Neck: Supple, nontender. No lymphadenopathy. No carotid bruits auscultated. No JVD. Cardiac: Regular rate and rhythm. No clicks, murmurs, gallops, or rubs. Pulses are 2+ in the bilateral dorsalis pedis, posterior tibialis, and radial areas. Respiratory: Clear to auscultation bilaterally. No wheezes, rales or rhonchi. Good air exchange bilaterally. Abdomen: Soft, nontender, nondistended. Bowel sounds present and normoactive in all 4 quadrants. No hepatosplenomegaly. No abdominal bruits auscultated. No hepatojugular reflux. Genitourinary: No suprapubic or CVA tenderness. Skin: Clean, dry, and intact. No rash. Neuro: Cranial nerves II through XII are intact. Strength 4+/5 in the left upper extremity compared to the right. No other focal deficits. No sensory deficits. Alert and oriented x3. Psychiatric: Pleasant and cooperative. DISCHARGE PLAN: The patient will be discharged to home. 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 Patient' s CVA characteristic is worrisome for an embolic stroke and she has a PFO. Patient generally lacks risk factors for a thrombotic stroke. Patient should be evaluated by a trap operator for the possibility of a PFO closure as well as for long-term event monitoring, which should be done within the next 1 to 2 weeks. This has been discussed with the patient and she will make this followup herself. Patient should follow up with Dr. Kaur in 4 to 6 weeks for evaluation. Patient will be on aspirin and statin, as above. Again, Plavix has been deferred at this time. Patient has no indication for anticoagulation and no definite embolic source was found. Patient should follow up with her primary care provider within 1 week for general medical management. Patient should return to the hospital for new weakness, chest pain, shortness of breath , passing out or other alarming symptoms. Patient should have a heart-healthy diet without caffeine and engage in activities as tolerated. TIME SPENT: Approximately 1 hour was spent on the discharge of this patient, 30 of which was spent [id number] with the patient obtaining history and physical and discussing treatment plan. ANDERSON GUTIÉRREZ [id number]/CPS #: [id number] MTDD
== END 2018-05-30 19:10 | disposition home or self-care (01) ==
LOC: ED 09:50 → MEDTELE 13:58
PROVIDERS: ADMIT Student in an Organized Health Care Education/Training Program; ATTEND Student in an Organized Health Care Education/Training Program
DX: I63.9 Cerebral infarction, unspecified (principal); Q21.1 Atrial septal defect; E04.9 Nontoxic goiter, unspecified; Z98.84 Bariatric surgery status; Z79.82 Long term (current) use of aspirin
CPT/HCPCS: 36415; 70450; 70544; 70551; 70552; 80053; 80061; 82607; 84443; 85027; 85610; 85730; 93005; 93306; 93880; 93970; 96372; 99284; A9270-GY; A9579; G0378; J1650

== ENCOUNTER 2019-11-03 05:45 | Observation (INO) ==
[2019-11-03] MEDS ORDERED: Lactated Ringers 1000 ml BAG 1,000 ML IV SCH (06:00)
[2019-11-03] MEDS ORDERED: ceFAZolin 2 GM PREMIX in ORs 2 GM/50 ML BAG ONE (06:11)
[2019-11-03] MEDS ORDERED: Buffered Lidocaine 1% SYRIN 1 ml INTRADERM ONE (06:30)
[2019-11-03] MEDS ORDERED: ROPIVACAINE 5 MG/ML 30 ML BTL (0.5%) ONE (06:37)
[2019-11-03] MEDS ORDERED: Midazolam 2 mg/2 ml VIAL 1 mg/ml 2 ml VIAL (2 mg) ONE (07:12)
[2019-11-03] MEDS ORDERED: fentaNYL 100 mcg/2 ml 50 MCG/ML VIAL ONE (07:12)
[2019-11-03] MEDS ORDERED: Bupivacaine 0.5% SDV PF 30ML VIAL ONE (07:20)
[2019-11-03] MEDS ORDERED: Naloxone 0.4 mg VIAL 0.4 mg/ml 1 ml VIAL IV PRN (08:12)
[2019-11-03] MEDS ORDERED: Lidocaine 2% PF 5 ML VIAL ONE (08:16)
[2019-11-03] MEDS ORDERED: Dexamethasone IV 4 MG/ML VIAL 1 ml VIAL ONE (08:17)
[2019-11-03] MEDS ORDERED: Ondansetron 4 mg VIAL 2 MG/ML 2 ml VIAL ONE (08:17)
[2019-11-03] MEDS ORDERED: EPHEDrine (Pressors) 50 MG/ML VIAL ONE (08:18)
[2019-11-03] MEDS ORDERED: Magnesium Hydroxide LIQ 30 ML UDC PO PRN (10:05)
[2019-11-03] MEDS ORDERED: oxyCODONE/Acetamin 5/325 mg TAB PO PRN (10:05)
[2019-11-03] MEDS ORDERED: Ondansetron ODT 4 mg TAB 4 MG TAB PO PRN (10:05)
[2019-11-03] MEDS ORDERED: diPHENhydraMINE IV 50 MG/ML 1 ml VIAL (BENADRYL) IV PRN (10:05)
[2019-11-03] MEDS ORDERED: Ondansetron 4 mg VIAL 2 MG/ML 2 ml VIAL IV PRN (10:05)
[2019-11-03] MEDS ORDERED: diPHENhydraMINE 25 mg TAB PO PRN (10:05)
[2019-11-03] MEDS ORDERED: Lactulose 30 ml UDC PO PRN (10:05)
[2019-11-03] MEDS: Lactated Ringers 1000 ml BAG 1,000 ML IV SCH (14:05)
[2019-11-03] MEDS: ceFAZolin 1 GM ADVAN(*) 1 GM in NS 0.9% 50 ML 50 ML IVPB SCH (16:29)
[2019-11-03] MEDS: Magnesium Hydroxide LIQ 30 ML UDC PO SCH (21:33)
[2019-11-04] MEDS: Lactated Ringers 1000 ml BAG 1,000 ML IV SCH (00:03)
[2019-11-04] MEDS: ceFAZolin 1 GM ADVAN(*) 1 GM in NS 0.9% 50 ML 50 ML IVPB SCH ×2 (00:41→08:34)
[2019-11-04 05:48] LABS: Hematocrit 32 % (35-47); Hemoglobin 10.9 g/dL (12.0-16.0); Mean Platelet Volume 9.2 fL (7.4-10.4); Platelet Count 204 10^3/uL (150-450)
[2019-11-04 06:05] LABS: BUN/Creatinine Ratio 30.4 (8-20); Calcium 8.4 mg/dL (8.6-10.3); EGFR African American 131.1 (>60); EGFR Non-African American 108.3 (>60); Potassium 4.1 mmol/L (3.5-5.0)
[2019-11-04] MEDS ORDERED: NS 0.9% 500 ml BAG 500 ML IV ONE (08:27)
[2019-11-04] MEDS: Magnesium Hydroxide LIQ 30 ML UDC PO SCH (08:37)
[2019-11-04] MEDS ORDERED: Aspirin EC 81 mg TAB.EC (enteric coated) PO SCH (09:00)
[2019-11-04] MEDS ORDERED: Vitamin THERAPEUTIC TAB PO SCH (09:00)
[2019-11-04 16:39] VITALS: BP 115/75
== END 2019-11-04 17:00 | disposition home or self-care (01) ==
LOC: SSU 05:45 → OR 05:45
PROVIDERS: ADMIT Orthopaedic Surgery Adult Reconstructive Orthopaedic Surgery; ATTEND Orthopaedic Surgery Adult Reconstructive Orthopaedic Surgery